=== PATIENT | female | born 1975 | race Caucasian/White ===

== ENCOUNTER → 2018-03-08 16:03 | Outpatient (CLI) | payer BC, SELFPAY ==
[2018-03-14 14:32] LABS: HPV Reflexed? NOT INDICATED
== END ==
PROVIDERS: Referring Provider Obstetrics & Gynecology; Visit Provider Obstetrics & Gynecology
DX: Z12.4 Encounter for screening for malignant neoplasm of cervix (principal)
CPT/HCPCS: 88175; G0145

== ENCOUNTER → 2018-04-29 10:16 | Outpatient (CLI) | payer OTHER, SELFPAY ==
--- NOTE | 2018-04-29 10:22 | BI_ITS ---
MAMMOGRAPHY - BILATERAL SCREENING REASON FOR EXAM: Female, 43 years old. Routine annual screening examination. PERTINENT HISTORY: Non-contributory. TECHNIQUE: Digital bilateral breast helen (3D mammographic acquisition) in the CC and MLO projections. 2-D mediolateral oblique (MLO) and craniocaudad (CC) views of both breasts were obtained. CAD: Full Field Digital Mammography with Computer Added Detection was performed. COMPARISON: None. Baseline examination. FINDINGS: Breast Composition: The breasts are heterogeneously dense, which may obscure small masses. There are no dominant masses or suspicious calcifications. No other significant abnormalities are identified. BI/SCREENING MAMM (CAD), BILAT IMPRESSION: Negative screening mammogram. Yearly followup mammogram recommended. (A) ASSESSMENT CATEGORY: BIRADS Category 1: Negative. A letter regarding these results will be sent to the patient by the facility within 30 days. Approximately 10% of breast cancers are not detected by mammography. A normal mammogram should not delay biopsy of a clinically suspicious abnormality. [id number] Electronically Signed: Hi Noe MD at 12:55 EST , Service support ,
== END ==
PROVIDERS: Referring Provider Obstetrics & Gynecology; Visit Provider Obstetrics & Gynecology
DX: Z12.31 Encounter for screening mammogram for malignant neoplasm of breast (principal)
CPT/HCPCS: 77063; 77067

== ENCOUNTER → 2018-06-19 14:57 | Outpatient (CLI) | payer OTHER, SELFPAY ==
[2018-06-19 20:00] LABS: Chlamydia Trachomatis by PCR Negative (Negative); Neisserai gonorrhoeae by PCR Negative (Negative); Probe Check PASS; Sample Adequacy Control PASS; Specimen Processing Control PASS
== END ==
PROVIDERS: Visit Provider Obstetrics & Gynecology
DX: Z11.3 Encounter for screening for infections with a predominantly sexual mode of transmission (principal)
CPT/HCPCS: 87491; 87591

== ENCOUNTER → 2022-04-24 | Outpatient (CLI) | payer OTHER, SELFPAY ==
--- NOTE | 2022-04-24 | CER_PTH ---
PATIENT: WALLACE KELLY [facility]#:[id number] AGE/SX: 47/F ROOM: RE04/24/[address]: ELIZABETH Gore : 1975 BED: DIS: 04/24/2022 SPEC #: [id number] RECD: 04/24/22 16:48 STATUS: ELIER REHoa #: [id number] NEHAL: 04/24/22 00:[address]: Doris Pitts NP DEPT: SURGICAL PATHOLOGY RECD BY: Camron Vargas ENTERED: 04/25/22 09:14 SP TYPE: CERV OTHR DR: Dr. Giovana Barnes, DO Tissues: Uterine cervix, NOS Procedures: Surgery Specimen Level IV HEADER OPERATION: Polypectomy PRE-OP DIAGNOSIS: Polyp TISSUE SUBMITTED: Cervical polyp MICROSCOPIC DIAGNOSIS Cervical polyp, biopsy: Benign endocervical polyp. AM/cc 04/26/22 MICROSCOPIC DESCRIPTION Slides are reviewed. GROSS DESCRIPTION Received is one container labeled with the patient name and designated cervical polyp. The specimen consists of one irregular fragment of light fleming soft tissue that measures 1.5 x 1.0 x 0.2 cm. The specimen is totally submitted in one cassette. /AM:edelmira 04/26/2022 TC: 5 CPT: 40057
[2022-05-01 23:20] LABS: HPV APTIMA, High Risk Negative (Negative)
== END | disposition home or self-care (01) ==
LOC: LABSPEC 17:02
PROVIDERS: PCP Family Medicine; Visit Provider Nurse Practitioner Women's Health
DX: N84.1 Polyp of cervix uteri (principal)
CPT/HCPCS: 87624; 88175; 88305; G0145

== ENCOUNTER → 2022-05-24 | Outpatient (CLI) | payer OTHER, SELFPAY ==
--- NOTE | 2022-05-24 15:04 | BI_ITS ---
MAMMOGRAPHY - BILATERAL SCREENING REASON FOR EXAM: Female, 47 years old. Routine annual screening examination. PERTINENT HISTORY: Non-contributory. TECHNIQUE: Digital bilateral breast chris (3D mammographic acquisition) in the CC and MLO projections. 2-D mediolateral oblique (MLO) and craniocaudad (CC) views of both breasts were obtained. CAD: Full Field Digital Mammography with Computer Added Detection was performed. COMPARISON: Comparison is made with prior study dated April 29, 2018. FINDINGS: Breast Composition: The breasts are heterogeneously dense, which may obscure small masses. There are no dominant masses or suspicious calcifications. No other significant abnormalities are identified. There has been no significant change since the prior study. BI/SCRN MAMM (CAD)W/CHRIS BILAT IMPRESSION: Stable bilateral screening mammogram. Yearly follow-up mammogram recommended. (A) ASSESSMENT CATEGORY: BIRADS Category 1: Negative. A letter regarding these results will be sent to the patient by the facility within 30 days. Approximately 10% of breast cancers are not detected by mammography. A normal mammogram should not delay biopsy of a clinically suspicious abnormality. [id number] Electronically Signed: Hi Noe MD at 15:46 EST ,
== END | disposition home or self-care (01) ==
LOC: OPBI 15:02
PROVIDERS: PCP Family Medicine; Visit Provider Nurse Practitioner Women's Health
DX: Z12.31 Encounter for screening mammogram for malignant neoplasm of breast (principal)
CPT/HCPCS: 77063; 77067

== ENCOUNTER → 2023-04-26 | Outpatient (CLI) | payer OTHER, SELFPAY ==
--- OUTSIDE RECORDS SUMMARY | 2023-04-26 18:01 | XMS RPT_ITS | CCD ---
Author Name Unknown Address [facility] [place] [address] Organization [facility] Care Team Providers Care Sales Office Coordinator Name Role Phone Juanjose Gao Unavailable [phone] Unavailable Unavailable Juanjose Gao Referring Juanjose Chu Attending Juanjose Chu Primary Care Juanjose Chu Primary Care Provider JUANJOSE GAO Primary Care Unavailable NIKITA KING Attending Unavailable Allergies Allergy Classification Reported Allergen(s) Allergy Type Date of Onset Reaction(s) Facility (1 source) cyclobenzaprine Drug Allergy 04-05-2018 [facility] Medications Current Medications Medication Drug Class(es) Dates Sig (Normalized) Sig (Original) benzonatate 200 mg oral capsule (1 source) Non-narcotic Antitussive Start: 03-29-2023 End: 04-05-2023 take 1 capsule by mouth three times daily as needed for cough benzonatate (Tessalon) 200 MG capsule Indications: Acute cough , Recurrent dry cough Take 1 capsule (200 mg) by mouth 3 times daily as needed for cough for up to 7 days. Do not crush or chew. 21 capsule 0 03/29/2023 04/05/2023 Active Completed/Discontinued Medications Medication Drug Class(es) Dates Sig (Normalized) Sig (Original) methocarbamol 500 mg oral tablet (1 source) Muscle Relaxant Start: 12-08-2021 take 1 tablet by mouth twice daily Methocarbamol 500 MG Oral Tablet Take 1 tablet twice daily Quantity: 60 Refills: 11 Ordered: 08-Dec-2021 Juanjose Gao MD Start : 08-Dec-2021 Active 12 hr orphenadrine citrate 100 mg extended release oral tablet (2 sources) Muscle Relaxant Start: 06-08-2020 End: 12-08-2021 take 1 tablet by mouth twice daily Orphenadrine Citrate ER 100 MG Oral Tablet Extended Release 12 Hour TAKE 1 TABLET TWICE DAILY. Quantity: 60 Refills: 3 Ordered: 27-Oct-2020 Juanjose Gao MD Start : 08-Jun-2020 End : 08-Dec-2021 Complete predniSONE 10 mg oral tablet (1 source) Start: 12-08-2021 predniSONE 10 MG Oral Tablet 4 PO daily x 3 days, 3 daily x 3 days, 2 daily x 3 days, 1 daily x 3 days, then stop Quantity: 30 Refills: 1 Ordered: 08-Dec-2021 Juanjose Gao MD Start : 08-Dec-2021 Active terbinafine 250 mg oral tablet (2 sources) Allylamine Antifungal Start: 06-08-2020 take 1 tablet by mouth once daily Terbinafine HCl - 250 MG Oral Tablet TAKE 1 TABLET DAILY. Quantity: 30 Refills: 2 Ordered: 08-Jun-2020 Juanjose Gao MD Start : 08-Jun-2020 Active Problems Active Problems Problem Classification Problem Date Documented Date Episodic/Chronic Contraceptive and procreative management (1 source) Intrauterine contraceptive device in situ; Translations: [Presence of (intrauterine) contraceptive device] Onset: 03-29-2023 03-29-2023 Episodic Joint disorders and dislocations; trauma-related (3 sources) Chondromalacia of patella; Translations: [Chondromalacia of patella] Onset: 03-29-2023 03-29-2023 Chronic Malaise and fatigue (3 sources) Fatigue; Translations: [Other malaise and fatigue] Onset: 03-29-2023 03-29-2023 Episodic Mycoses (3 sources) Onychomycosis of toenails; Translations: [Dermatophytosis of nail] Onset: 03-29-2023 03-29-2023 Episodic Other lower respiratory disease (1 source) Cough; Translations: [Acute cough] 03-29-2023 Episodic Other lower respiratory disease (1 source) Dry cough; Translations: [Recurrent dry cough] 03-29-2023 Episodic Other nervous system disorders (3 sources) Numbness; Translations: [Disturbance of skin sensation] Onset: 03-29-2023 03-29-2023 Episodic Other screening for suspected conditions (not mental disorders or infectious disease) (2 sources) Patient encounter status; Translations: [Screening for lipoid disorders] Episodic Residual codes; unclassified (2 sources) Persistent insomnia; Translations: [Persistent disorder of initiating or maintaining sleep] Onset: 03-29-2023 03-29-2023 Episodic Spondylosis; intervertebral disc disorders; other back problems (4 sources) Low back pain; Translations: [Lumbago] Onset: 03-29-2023 03-29-2023 Episodic Substance-related disorders (1 source) Smoker; Translations: [Nicotine dependence, unspecified, uncomplicated] Onset: 10-30-2017 03-29-2023 Chronic Unclassified (1 source) Acute cough; Translations: [Acute cough] Onset: 03-29-2023 Unclassified (1 source) Other specified cough; Translations: [Other specified cough] Onset: 03-29-2023 Past or Other Problems Problem Classification Problem Date Documented Da te Episodic/Chronic Abdominal pain (1 source) Tenderness of epigastrium; Translations: [Epigastric abdominal tenderness] Onset: 10-30-2017 03-29-2023 Episodic Nonspecific chest pain (1 source) Chest pain; Translations: [Chest pain, unspecified] Onset: 10-30-2017 03-29-2023 Episodic Other female genital disorders (1 source) Endocervical polyp; Translations: [Polyp of cervix uteri] Onset: 05-03-2022 03-29-2023 Episodic Unclassified (1 source) Acute cough; Translations: [Acute cough] Onset: 03-29-2023 Unclassified (1 source) Other specified cough; Translations: [Other specified cough] Onset: 03-29-2023 Results Test Name Value Interpretation Reference Range Facil ity Vital Signs Date Time Vital Sign Value Performing Clinician Facility 03-29-2023 16:46-0500 Body temperature 97.59 [degF] Nikita King DO Work Phone: [facility] 03-29-2023 16:46-0500 Body weight 74.84 kg Nikita King DO Work Phone: [facility] 03-29-2023 16:46-0500 Diastolic blood pressure 82 mm[Hg] Nikita King DO Work Phone: [employer] 03-29-2023 16:46-0500 Heart rate 91 /min Nikita King DO Work Phone: [employer] 03-29-2023 16:46-0500 SaO2% (BldA) [Mass fraction] 97 % Nikita King DO Work Phone: [employer] 03-29-2023 16:46-0500 Systolic blood pressure 124 mm[Hg] Nikita King DO Work Phone: [employer] 12-08-2021 15:35-0400 Body height 166.37 cm Juanjose Gao Work Phone: [employer] [facility] Work Phone: 12-08-2021 15:35-0400 Body mass index (BMI) [Ratio] 28.6 kg/m2 Juanjose Gao Work Phone: [employer] [facility] Work Phone: 12-08-2021 15:35-0400 Body surface area Derived from formula 1.88 m2 Juanjose Gao Work Phone: [employer] [facility] Work Phone: 12-08-2021 15:35-0400 Body weight 79.15 kg Juanjose Gao Work Phone: [employer] [facility] Work Phone: 12-08-2021 15:35-0400 Diastolic blood pressure 72 mm[Hg] Juanjose Gao Work Phone: [employer] [facility] Work Phone: 12-08-2021 15:35-0400 Heart rate 98 /min Juanjose Gao Work Phone: [employer] [facility] Work Phone: 12-08-2021 15:35-0400 SaO2% (BldA) [Mass fraction] 99 % Juanjose Gao Work Phone: [employer] [facility] Work Phone: 12-08-2021 15:35-0400 Systolic blood pressure 124 mm[Hg] Juanjose Gao Work Phone: [email or web address] [facility] Work Phone: Encounters Encounter Date Encounter Type Care Provider Facility Start: 03-29-2023 End: 03-29-2023 ambulatory JUANJOSE GAO [facility] Start: 03-29-2023 End: 03-29-2023 Office outpatient visit 15 minutes Nikita King DO Work Phone: [facility] Procedures Date Procedure Procedure Detail Performing Clinician Start: 03-29-2023 Sars-cov-2 detection by dna/rna Nikita King DO Work Phone: Start: 05-24-2022 Mammography Nikita Govea with DO Work Phone: Start: 10-11-2018 Electrocardiogram Extraction of wisdom tooth P jaukb Gao Work Phone: Plan of Treatment Date Care Activity Detail Author Start: 2037 RSV Immunization age d 60 or older (1 - 1-dose 60+ series) RSV Immunization aged 60 or older (1 - 1-dose 60+ series) [facility] Start: 2027 Zoster Vaccines (1 of 2) Zoster Vacc melissa (1 of 2) [facility] Start: 05-25-2023 Screening for malign ant neoplasm of breast Mammogram [facility] Start: 11-17-2022 COVID-19 Vaccine ( season) COVID-19 Vaccine ( season) [facility] Start: 11-17-2022 Influenza vaccination Influenza Vacc ine (#1) [facility] Start: 2007 Screening for malign ant neoplasm of cervix [facility] Start: 1998 Screening for malign ant neoplasm of cervix Pap Smear [facility] Start: 1996 DTaP/Tdap/Td Vaccine s (1 - Tdap) DTaP/Tdap/Td Vaccines (1 - Tdap) [facility] Start: 1995 Diabetes mellitus screening Diabetes Screening [facility] Start: 1995 Hepatitis C screening Hepatitis C Sc reening [facility] Start: 1989 Depression Screening Depression Scre morena [facility] Start: 1983 Pneumococcal Vaccine : Pediatrics (0 to 5 Years) and At-Risk Patients (6 to 64 Years) (1 of 2 - PCV) Pneumococcal Vaccine: Pediatrics (0 to 5 Years) and At-Risk Patients (6 to 64 Years) (1 of 2 - PCV) [facility] Start: 1978 MMR Vaccines (1 of 1 - Standard series) MMR Vaccines (1 of 1 - Standard series) [facility] Start: 1977 Hepatitis B Vaccines (1 of 3 - 3-dose series) Hepatitis B Vaccines (1 of 3 - 3-dose series) [facility] Start: 1977 HIV screening HIV Screening [facility] Start: 1977 Lipid panel Lipid Panel [facility] Start: 1977 Screening for malign ant neoplasm of colon [facility] Immunizations Immunization Date Immunization Notes Care Provider Fa sommer 09-30-2020 Moderna COVID-19 Vaccine 100 MCG/0.5ML Intramuscular Suspension Juanjose T Furness Work Phone: [employer] Work Phone: 08-26-2020 Moderna COVID-19 Vaccine 100 MCG/0.5ML Intramuscular Suspension Juanjose T Furness Work Phone: [employer] Work Phone: Payers Date Payer Category Payer Unknown 2023 Unknown [id number] 1975 Unknown [id number] Unknown [id number] Social History Date Type Detail Facility Start: 03-29-2023 [facility] Work Phone: Tobacco smoking status NHIS Occasional tobacco smoker [facility] Start: 03-29-2023 Alcohol intake Current drinke r of alcohol (finding) [facility] Start: 03-29-2023 Tobacco use [facility] Start: 1975 Sex Assigned At Not on file [facility] History of Present illness Narrative 03-29-2023 Nikita King, DO - 03/29/2023 4:40 PM EST Note Date & Type Note Facility 03-29-2023 History of Presen t illness Narrative Subjective: Chief Complaint Patient presents with Cough Coughing x8 days Patient: Giselle Kelly is a 48 y.o. female Patient presenting to urgent care with an 8-day duration of dry cough. Patient reports that this is a recurrent, dry cough, over the past few months. First episode was in January, reoccurring in February, and then now in March. Feels fine. No other symptoms. The first 2 episodes resolved on their own. Patient was having fevers during the second episode. Cough is worse in the mornings. Wakes up coughing. No sick contacts. Has been taking DayQuil, NyQuil, and Ling's cough drops at home. No home COVID testing. No GERD or dysgeusia. Review of Systems Constitutional: Negative for fatigue and fever. Respiratory: Negative for shortness of breath. +cough. Cardiovascular: Negative for chest pain, palpitations and leg swelling. Gastrointestinal: Negative for abdominal pain, blood in stool, constipation and diarrhea. Neurological: Negative for dizziness, light-headedness and headaches. Allergies Allergen Reactions Cyclobenzaprine Hives No current outpatient medications on file prior to visit. No current facility-administered medications on file prior to visit. Past Medical History: Diagnosis Date PVC (premature ventricular contraction) Drug Therapy Social History Tobacco Use Smoking status: Some Days Smokeless tobacco: Not on file Substance Use Topics Alcohol use: Yes Alcohol/week: 1.0 standard drink of alcohol Objective: BP 124/82 (BP Location: Left arm, Patient Position: Sitting) Pulse 91 Temp 36.4 C (97.6 F) Wt 165 lb (74.8 kg) SpO2 97% Physical Exam Constitutional: Oriented to person, place, and time. Appears well-developed and well-nourished. No distress. Eyes: EOM are normal. No scleral icterus. Neck: Normal range of motion. Neck supple. Cardiovascular: Normal rate, regular rhythm, normal heart sounds and intact distal pulses. No murmur heard. Pulmonary/Chest: Effort normal and breath sounds normal. No respiratory distress. No wheezes, rales, or rhonchi. Musculoskeletal: Normal range of motion. No edema. Lymphadenopathy: No cervical adenopathy. Neurological: Alert and oriented to person, place, and time. No cranial nerve deficits. Gait normal. Skin: Skin is warm and dry. Psychiatric: Normal mood and affect. Speech is normal and behavior is normal. Judgment and thought content normal. Assessment 1. Acute cough 2. Recurrent dry cough Plan Diagnoses and all orders for this visit: Acute cough - benzonatate (Tessalon) 200 MG capsule; Take 1 capsule (200 mg) by mouth 3 times daily as needed for cough for up to 7 days. Do not crush or chew. - AMB POC COVID-19 COV Recurrent dry cough - benzonatate (Tessalon) 200 MG capsule; Take 1 capsule (200 mg) by mouth 3 times daily as needed for cough for up to 7 days. Do not crush or chew. - AMB POC COVID-19 COV Umdlj-ou-szvy COVID negative. Recommended against chest x-ray given normal pulmonary exam, vitals, and relatively short duration of cough. I do recommend a trial of Tessalon Perles. We discussed that symptoms could be due to RSV given that we are seeing higher rates of RSV in the community lately. Symptoms not suspicious for GERD. We discussed that the cough from RSV can last for up to several weeks even. No indication for ABX therapy. Symptoms not suspicious for influenza. Nikita King DO 03/29/23 5:08 PM If symptoms do not improve, worsen, or new symptoms develop, see PCP for further evaluation. (Please note: Portions of this note were completed with a voice recognition program, [employer] doc for [employer]. Efforts were made to edit the dictations but occasionally words and phrases are mis-transcribed.) documented in this encounter [facility] Instructions 03-29-2023 Patient InstructionsAttachments Note Date & Type Note Facility 03-29-2023 Instructions Nikita King DO - 03/29/2023 4:40 PM EST Thank you for coming to [facility] for your medical care! The following attachments cannot be sent through Care Everywhere.Cough Discharge Instructions, Adult (Macedonian)[facility] Note Date & Type Note Facility documented in this encounter [facility] Summary Purpose Family History No Family History Records FoundUnknown Family Member Name Dates Details Family history of thyroid di sease: Mother(V18.19, Z83.49) Status:Active Family history of rheumatoid arthritis: Mother(V17.7, Z82.61) Status:Active Family history of congestive heart failure: Father(V17.49, Z82.49) Status:Active Family history of hypertensi on: Father(V17.49, Z82.49) Status:Active Family history of diabetes m ellitus: Father(V18.0, Z83.3) Status:Active Cellulitis: Father Status:Active Congenital abnormality: Brot her Status:Active Primary cervical cancer: Sis ter Status:Active Advance Directives No Advanced Directives Records FoundNo Advanced Directives Records FoundNo Advanced Directives Records FoundNo Advanced Directives Records FoundNo Advanced Directives Records FoundNo Advanced Directives Records FoundNo Advanced Directives Records Found Additional Source Comments INFORMATION SOURCE (unrecogn ized section and content) DATE CREATED AUTHOR AUTHOR'S ORGANIZ ATION 10/11/2018 [facility] DATE CREATED AUTHOR AUTHOR'S ORGANIZ ATION 10/14/2018 [facility] DATE CREATED AUTHOR AUTHOR'S ORGANIZ ATION 06/13/2020 [facility] DATE CREATED AUTHOR AUTHOR'S ORGANIZ ATION 12/19/2021 [facility] DATE CREATED AUTHOR AUTHOR'S ORGANIZ ATION 12/19/2021 [employer] DATE CREATED AUTHOR AUTHOR'S ORGANIZ ATION 04/01/2023 [facility] Reason for Visit (unrecogniz ed section and content) Care Teams (unrecognized sec tion and content) FOR RECORDS PERTAINING TO PATIENTS WHO ARE OR HAVE BEEN ENROLLED IN A CHEMICAL DEPENDENCY/SUBSTANCEABUSE PROGRAM, SOME INFORMATION MAY BE OMITTED. This clinical summary was aggregated from multiple sources. Caution should be exercised in using it in the provision of clinical care. This summary normalizes information from multiple sources, and as a consequence, information in this document may materially change the coding, format and clinical context of patient data. In addition, data may be omitted in some cases. CLINICAL DECISIONS SHOULD BE BASED ON THE PRIMARY CLINICAL RECORDS. [facility]. provides no warranty or guarantee of the accuracy or completeness of information in this document.
== END | disposition home or self-care (01) ==
LOC: LABSPEC 16:43
PROVIDERS: PCP Family Medicine; Referring Provider Nurse Practitioner Women's Health; Visit Provider Nurse Practitioner Women's Health
DX: N89.8 Other specified noninflammatory disorders of vagina (principal)
CPT/HCPCS: 87070; 87205

== ENCOUNTER → 2024-03-26 | Outpatient (CLI) | payer BC, SELFPAY ==
[2024-03-26 22:00] LABS: Absolute Lymphocyte Count 3.63 X10^3/uL (0.83-4.51); Absolute Neutrophil Count 3.8 X10^3/uL (2.0-7.7); Basophil# 0.02 X10^3/uL; Basophil% 0.2 % (0-1); Eosinophil# 0.15 X10^3/uL; Eosinophils% 1.8 % (0-5); Hematocrit 39.7 % (37-47); Hemoglobin 13.2 g/dL (12.0-15.0); Lymphocyte # 3.63 X10^3/ul (0.83-4.51); Lymphocyte % 44.5 % (19-41); Mean Corp Hgb Conc 33.2 g/dL (32-36); Mean Corpuscular Hgb 30.1 pg (27.0-32.0); Mean Corpuscular Volume 90.4 fL (81-99); Mean Platelet Vol. 10.2 fl (6.2-12.0); Monocyte# 0.59 X10^3/uL; Monocyte% 7.2 % (0-10); NRBC Flagged by Analyzer 0 % (0-5); Neutrophil # 3.75 X10^3/uL (2.7-7.7); Neutrophil % 46.1 % (47-70); Platelet Count 312 K/mm3 (150-450); RBC Distribution Width SD 39.9 fl (35.1-43.9); Red Blood Count 4.39 M/mm3 (4.2-5.4); White Blood Count 8.2 K/mm3 (4.4-11.0)
[2024-03-26 22:22] LABS: ALB/GLOB Ratio 1.1 RATIO (0.9-2.4); AST(SGOT) 16 U/L (15-37); Alanine Aminotransfer ALT/SGPT 22 U/L (13-56); Albumin, Serum 4.2 g/dL (3.2-5.0); Alkaline Phosphatase 74 U/L (45-117); Anion Gap 6 (5-15); BUN 9 mg/dL (7-18); BUN/Creat Ratio 12.3 RATIO (10-20); Calcium,Total 9.4 mg/dL (8.5-10.1); Chloride 106 mmol/L (98-107); Cholesterol 218 mg/dL (200); Creatinine, Serum 0.73 mg/dL (0.55-1.02); EST Glomerular Filtration Rate 91 mL/min (>60); Est Glom Filt Rate - Afr Amer 110 mL/min (>60); Globulin 3.7 g/dL (2.2-4.2); Glucose 91 mg/dL (74-106); High Density Lipoprotein 51 mg/dL; Potassium 3.8 mmol/L (3.5-5.1); Protein, Total 7.9 g/dL (6.4-8.2); Sodium Level 139 mmol/L (136-145); Triglycerides 102 mg/dL; Very Low Density Lipoprotein 20 mg/dL (5-40)
== END | disposition home or self-care (01) ==
PROVIDERS: PCP Family Medicine; Referring Provider Nurse Practitioner; Visit Provider Nurse Practitioner
DX: R53.83 Other fatigue (principal); R79.89 Other specified abnormal findings of blood chemistry; D64.9 Anemia, unspecified
CPT/HCPCS: 80053; 80061; 84443; 85025

== ENCOUNTER → 2024-04-10 | Outpatient (CLI) | payer BC, SELFPAY ==
--- NOTE | 2024-04-10 08:27 | BI_ITS ---
MAMMOGRAPHY - BILATERAL SCREENING REASON FOR EXAM: Female, 49 years old. Routine annual screening examination. PERTINENT HISTORY: Non-contributory. TECHNIQUE: Digital bilateral breast chris (3D mammographic acquisition) in the CC and MLO projections. 2-D mediolateral oblique (MLO) and craniocaudad (CC) views of both breasts were obtained. CAD: Full Field Digital Mammography with Computer Added Detection was performed. COMPARISON: Comparison is made with prior study May 24, 2022 and April 29, 2018. FINDINGS: Breast Composition: The breasts are heterogeneously dense, which may obscure small masses. There are no dominant masses or suspicious calcifications. No other significant abnormalities are identified. There has been no significant change since the prior study. BI/SCRN MAMM (CAD)W/CHRIS BILAT IMPRESSION: Stable bilateral screening mammogram. Yearly follow-up mammogram recommended. (A) ASSESSMENT CATEGORY: BIRADS Category 1: Negative. A letter regarding these results will be sent to the patient by the facility within 30 days. Approximately 10% of breast cancers are not detected by mammography. A normal mammogram should not delay biopsy of a clinically suspicious abnormality. [id number] Electronically Signed: Hi Noe MD at 9:31 EST ,
== END | disposition home or self-care (01) ==
LOC: OPBI 08:26
PROVIDERS: PCP Family Medicine; Referring Provider Nurse Practitioner Women's Health; Visit Provider Nurse Practitioner Women's Health
DX: Z12.31 Encounter for screening mammogram for malignant neoplasm of breast (principal)
CPT/HCPCS: 77063; 77067